=== PATIENT | female | born 1970 | race Caucasian/White ===

== ENCOUNTER 2019-08-28 21:56 | Emergency (ER) | payer SELFPAY ==
[~2019-08-28] VITALS: Ht 167.6 cm; Wt 118.2 kg
[2019-08-28 22:28] LABS: EOS # 0.2 (0.04-0.40); EOS % 3.4 % (1.0-5.0); HEMATOCRIT 41.6 % (37.0-47.0); HEMOGLOBIN 13.8 g/dL (12.5-16.0); LYMPH# 3.3 (1.50-4.00); MEAN CELL VOLUME 89 fl (78-100); MEAN CORPUSCULAR HEMOGLOBIN 30 pg (27-31); MEAN CORPUSCULAR HGB CONC 33 g/dL (33-37); MONO # 0.4 (0.20-0.80); NEU # 2.6 (1.40-6.50); PLATELET COUNT 293 K/mm3 (130-400); RED BLOOD COUNT 4.68 M/mm3 (4.10-5.30); WHITE BLOOD COUNT 6.5 K/mm3 (4.8-10.8)
[2019-08-28 22:36] LABS: ALBUMIN 4.4 g/dL (3.5-5.0); SODIUM 141 mmol/L (136-145)
[2019-08-28 22:37] LABS: CALCIUM 9.7 mg/dL (8.3-10.5)
[2019-08-28 22:38] LABS: GLUCOSE 102 mg/dL (65-105)
[2019-08-28 22:39] LABS: TOTAL PROTEIN 6.8 g/dL (6.4-8.3)
[2019-08-28 22:40] LABS: CARBON DIOXIDE 25 mmol/L (22-29); TOTAL BILIRUBIN 0.2 mg/dL (0.2-1.2)
[2019-08-28 22:44] LABS: AST-SGOT 18 U/L (5-34)
[2019-08-28 22:45] LABS: ALT/SGPT 28 U/L (0-55)
[2019-08-28 23:01] LABS: TROPONIN-I < 0.03 ng/mL (<0.030)
[2019-08-28 23:36] VITALS: BP 139/89
== END 2019-08-28 23:36 | disposition home or self-care (01) ==
LOC: ED 21:56
PROVIDERS: Family Medicine
DX: K30 Functional dyspepsia (principal); G35 Multiple sclerosis